=== PATIENT | female | born 1980 | race Two or more races ===

== ENCOUNTER → 2019-11-03 | Outpatient (CLI) | payer OTHER ==
[2015-08-01 18:04] VITALS: BP 155/85
[~2019-11-03] MED LIST: HYDR-2869 PO
--- NOTE | 2019-11-03 09:06 | RAD ---
EXAM: 1. ULTRASOUND-GUIDED CORE BIOPSY RIGHT BREAST WITH CLIP PLACEMENT. 2. POSTCLIP DIAGNOSTIC RIGHT MAMMOGRAPHY. HISTORY: Right breast mass. Ultrasound-guided biopsy is requested. FINDINGS: The procedure along with its risks and benefits were explained to the patient. She agreed to proceed. A timeout procedure was performed. Sonographic evaluation of the right breast redemonstrates the lesion of concern. It is seen as a hypoechoic mass at the 10:00 position 2 cm from the nipple. The overlying skin was sterilely prepped and infiltrated with 1% lidocaine for local anesthesia. Under ultrasound guidance, 3 core needle specimens of the target lesion were obtained using a 14-gauge biopsy device. These were submitted in formalin. A postbiopsy clip was placed under ultrasound guidance. Pressure was held to hemostasis. There were no immediate complications. Full-field digital mammographic views of the right breast were obtained in CC and MLO projections and interpreted on a dedicated workstation. They demonstrate the clip in correspondence with the target lesion. IMPRESSION: 1. Successful ultrasound-guided right breast biopsy with clip placement. 2. The postbiopsy clip corresponds with the target lesion. Electronically signed by: Karma Jc MD (11/03/2019 9:03 AM) [id number]
--- NOTE | 2019-11-04 17:06 | PATHOLOGY ---
[facility] Accession Number: [id number] . 01 Material submitted: . breast - RIGHT BREAST 10:00 2CFN. Modifiers: right, 10:00 . 01 Clinical history: . Right breast mass 2.9 cm . 02 Diagnosis: Breast tissue, right breast mass 10:00 needle biopsies: - Fibrocystic changes with the following components: - Confluent stromal fibrosis. - Cystic change, focal. - Apocrine metaplasia, focal. LBQ 11/04/2019 1548 Local . 02 Comment: There is no evidence of malignancy. (JPM/db; 11/04/2019) . 02 Electronically signed: . Jun Ramsay MD, Pathologist NPI- [id number] . 01 Gross description: . The specimen is received in formalin, labeled "Ruma Mendoza, right breast 10:00 2 cm from nipple". Received are three needle cores of fibrofatty tissue measuring 1.7 x 0.6 x 0.2 cm in aggregate dimensions. The specimen is submitted entirely in cassettes A1 through A3. The cold ischemic time is 2 minutes. The total formalin fixation time is 13 hours and 13 minutes. ([facility]; 11/03/2019) QAC/QAC 11/03/2019 1529 Local . 02 Pathologist provided ICD-10: N60.11, N60.81 . 02 CPT . 547943 Specimen Comment: A courtesy copy of this report has been sent to [phone] Specimen Comment: [phone] Specimen Comment: Report sent to / DR NGUYỄN Performed at: [address], [place], [place] [id number] MD Estuardo Rosenbaum MD Phone: [phone] Performed at: [address] [id number] MD Jun Ramasy MD Phone: [phone]
== END | disposition home or self-care (01) ==
LOC: US 07:52
PROVIDERS: ATTEND Physician Assistant Medical
DX: N63.10 Unspecified lump in the right breast, unspecified quadrant (principal); N60.11 Diffuse cystic mastopathy of right breast
CPT/HCPCS: 19083; 77065; 88305; C1713; 19081; 76942

== ENCOUNTER → 2020-05-27 | Outpatient (CLI) | payer OTHER ==
[2015-08-01 18:04] VITALS: BP 155/85
[~2020-05-27] MED LIST changes: +HYDR-3164 PO
== END ==
LOC: LAB 14:09
PROVIDERS: ATTEND Surgery
DX: Z01.812 Encounter for preprocedural laboratory examination (principal); N63.10 Unspecified lump in the right breast, unspecified quadrant; Z20.828 Contact with and (suspected) exposure to other viral communicable diseases
CPT/HCPCS: U0003

== ENCOUNTER 2020-06-01 10:53 | Day surgery (SDC) | payer OTHER ==
[~2020-06-01] VITALS: Ht 162.6 cm; Wt 125.0 kg
[~2020-06-01 10:53] MED LIST changes: +BUPIVACAINE-EPI 0.5%-1:200000 MPF 30 ML VIAL. INJ ONE; +DEXAMETHASONE SOD PHOS 4 MG/ML VIAL ONE; -HYDR-3164 PO; +HYDROmorphone 2 MG/ML VIAL IV PRN; +IV RINGERS,LACTATED 1000ML 1,000 ML IV SCH; +LIDOCAINE 2% PF 5 ML VIAL. ONE; +MORPHINE SULFATE 2 MG/ML VIAL. IV PRN; +ONDANSETRON PF 4 MG/2 ML VIAL. IV PRN; +ONDANSETRON PF 4 MG/2 ML VIAL. ONE; +PROCHLORPERAZINE 10 MG/2 ML VIAL. IV PRN; +PROPOFOL 10 MG/ML (20ML) VIAL. IV ONE; +fentaNYL PF VIAL 100 MCG/2 ML VIAL IV PRN
[2020-06-01] MEDS ORDERED: fentaNYL PF VIAL 100 MCG/2 ML VIAL ONE (13:46)
[2020-06-01] MEDS ORDERED: MIDAZOLAM HCL/PF 2 MG/2 ML VIAL. ONE (13:46)
--- NOTE | 2020-06-01 14:22 | RAD ---
Examination: DIGITAL DIAGNOSTIC RT, US GUID NDL PLACE/ASPI/BX History: Reason: RIGHT BREAST MASS/POST WIRE LOC / Spl. Instructions: / History: Comparison/Correlation: None Findings: Risks, benefits, and alternatives regarding right breast mass ultrasound-guided needle localization were discussed with the patient and informed consent was obtained. Cleansing with ChloraPrep at the anticipated site of needle placement was performed. Sterile draping, sterile gel, and sterile probe cover is were utilized. Approximately 8 cc of 1 percent lidocaine was administered subcutaneously and along the expected course of the needle tracks. 7 mm needle-wire examination was introduced via lateral approach into the right breast mass. The wire was deployed and the tip is deep to the mass. The patient tolerated procedure well without immediate complications. Mediolateral and CC images of the right breast were obtained. Scattered fibroglandular densities are present. The wire is present extending from the lateral aspect of the anterior right breast and it terminates in the medial anterior axillary region coursing through the mass. Biopsy clip marker within the mass also seen. Impression: Successful ultrasound-guided needle-wire localization of the patient's known anterior right upper breast mass. Electronically signed by: Domenico Rand MD (06/01/2020 2:19 PM) [id number]
[2020-06-01] MEDS ORDERED: PROPOFOL 10 MG/ML (20ML) VIAL. IV ONE (14:41)
[2020-06-01] MEDS ORDERED: SEVOFLURANE 61 TO 120 MINUTES. IH ONE (14:52)
--- NOTE | 2020-06-01 15:27 | DISCH ---
DISCHARGE INSTRUCTIONS Condition on Discharge Condition on Discharge: Stable Activity After Discharge Activity Instructions for Disc: Resume previous activity Diet after Discharge Diet after Discharge: Regular Wound Incision Care Wound/Incision Care: Other, see below (keep dressing clean and dry X 72 hours, may then remove and shower) Follow-Up Follow up with: Dr Meza in 2 weeks in office, call for appointment [phone] HELEN MEZA MD Jun 01, 2020 15:27
--- NOTE | 2020-06-01 15:31 | PDOC4 ---
Operative Note Operative Note Operative Note: Preoperative Diagnosis: Right breast mass Postoperative Diagnosis: Same Procedure: Right breast excisional biopsy with needle localization Surgeon: Tristen Program Manager Environmental Planning: Maykel LAYTON Anesthesia: General EBL: 5 mL Specimen: Right breast specimen to pathology Drains: None Complications: None Indication: The patient is a 39-year-old female who underwent a core needle biopsy for a right breast mass. The results were discordant and a recommendation was made for an excisional biopsy. The risks of surgery were discussed with the patient which include bleeding, infection, pain, anesthetic risk, scar tissue, potential need for additional surgery procedure. She unde rstands and would like to proceed. Description: The patient was taken to the operating room and placed supine on the operating table. General anesthesia was performed. The right breast was prepped with ChloraPrep and draped in a standard surgical manner. The wire was seen entering the lateral aspect of the breast near the areola. A small curved periareolar incision was made near the 10 o'clock position. A combination of sharp and cautery dissection were carried down into the breast parenchyma. The wire was identified and followed to its distal tip. A generous portion of the breast tissue along the trajectory of the wire was mobilized from the surrounding tissue. The mass was readily palpable and included in the specimen. The specimen was then fully excised and sent to radiology. Specimen radiograph confirmed the presence of the clip and mass. The specimen was then sent to pathology. Hemostasis was good. The subcutaneous tissue was closed with 3-0 Vicryl. The skin was closed with 4-0 Monocryl. The incision was infiltrated with half percent Marcaine with epinephrine. A Steri-Strip and dressing were applied. The patient tolerated the procedure well and was sent to the recovery room in stable condition. At the end of the case all counts were correct. HELEN MEZA MD Jun 01, 2020 15:31
[2020-06-01] MEDS ORDERED: HYDR-3164 PO (15:40)
[2020-06-01] MEDS ORDERED: HYDROcodone/APAP 5/325MG 1 TAB TABLET PO ONE ×2 (15:45)
[2020-06-01 15:50] VITALS: BP 166/73
--- NOTE | 2020-06-02 09:52 | RAD ---
Examination: MG DIGITAL BILAT DIAGNOSTIC MAMMO WITH RALPH History: POST EXCISSIONAL BIPOSY Comparison/Correlation: 11/03/2019 right unilateral diagnostic mammogram Findings: Specimen radiograph of the excised right breast mass was obtained. The wire is evident. The ovoid mass is seen with the biopsy clip marker within it. Impression: Successful excision of the right breast mass of interest. Electronically signed by: Domenico Rand MD (06/02/2020 9:49 AM) [id number]
--- NOTE | 2020-06-06 19:11 | PATHOLOGY ---
[facility] Accession Number: [id number] . 01 Material submitted: . breast - RIGHT BREAST BIOPSY. Modifiers: right . 01 Clinical history: . RIGHT BREAST MASS . 02 Diagnosis: Breast tissue, wire localized excision right breast mass: - Well demarcated nodular focus of fibrocystic change with the following components: - Mild ductal epithelial hyperplasia, focal. - Confluent stromal fibrosis. - Duct ectasia. - Cystic change. - Apocrine metaplasia. - Fibroadenomatous change, focal. (JPM:denzel; 06/06/2020) S 06/06/2020 1753 Local . 02 Comment: There is no atypia or evidence of malignancy. (JPM:denzel; 06/06/2020) . 02 Electronically signed: . Jun Ramsay MD, Pathologist NPI- [id number] . 01 Gross description: . The specimen is received in formalin, labeled "Ruma Pfeiffer, right breast biopsy". Received is a 22 g unoriented segment of bright yellow fibrofatty tissue measuring 6.3 x 5.0 x 1.4 cm in greatest dimensions. There is a localization wire present, which is loosely attached to the specimen, which has completely detached upon removal from the container. The surgical margin is inked. The specimen is sectioned into 19 slices to reveal a well-demarcated white mass measuring 3.5 x 2.4 x 0.9 cm in greatest dimensions, which grossly abuts the inked margin. The mass is located in slices 2 through 9. A previous biopsy marker is identified within slice 5. There are also scattered cystic structures within the mass measuring up to 0.3 cm in maximum dimensions filled with clear fluid. The remainder of the specimen is comprised of bright yellow fibrofatty tissue. The mass is submitted entirely in cassettes A1 through A15, with the sections in cassettes A1 through A14 additionally bisected. The cold ischemic time is 31 minutes. The total formalin fixation time is 56 hours. ([facility]; 06/03/2020) QA/QA 06/03/2020 1627 Local . 02 Pathologist provided ICD-10: N60.12, N60.41, N60.81, N60.31 . 02 CPT . 875923 Specimen Comment: A courtesy copy of this report has been sent to [phone] Specimen Comment: [phone] Specimen Comment: Report sent to / DR NGUYỄN Performed at: 01 [facility] [address], [place] [id number] MD Frank Boothe MD Phone: [phone] Performed at: 02 [facility] [address] [place], [place] [id number] MD Jun Ramsay MD Phone: [phone]
== END 2020-06-01 16:30 | disposition home or self-care (01) ==
LOC: SURG 10:53
PROVIDERS: ATTEND Surgery
DX: N63.10 Unspecified lump in the right breast, unspecified quadrant (principal); R92.8 Other abnormal and inconclusive findings on diagnostic imaging of breast; N60.81 Other benign mammary dysplasias of right breast; N60.31 Fibrosclerosis of right breast; E66.9 Obesity, unspecified; Z79.899 Other long term (current) drug therapy; Z98.890 Other specified postprocedural states; Z72.89 Other problems related to lifestyle; Z68.42 Body mass index [BMI] 45.0-49.9, adult
CPT/HCPCS: 19125; 76098; 76942; 77065; 81025; J0690; J1100; J2250; J2405; J2704; J3010; 19083